=== PATIENT | female | born 1990 ===

== ENCOUNTER 2020-11-13 19:07 | Inpatient (IN) | payer BC ==
[~2020-11-13] VITALS: Ht 162.6 cm; Wt 81.3 kg
[2020-11-13] MEDS ORDERED: NEWBORN KIT ONE (19:29)
[2020-11-13] MEDS: D5%-LACTATED RINGERS 1,000 ML IV SCH (19:30)
[2020-11-13] MEDS ORDERED: LIDOCAINE 1%, 20ML ONE (19:30)
[2020-11-13] MEDS ORDERED: CALCIUM CARBONATE 500 MG TAB.CHEW PO PRN (19:30)
[2020-11-13] MEDS ORDERED: ONDANSETRON 2MG/ML, 2ML IVPush PRN ×2 (19:30→20:00)
[2020-11-13] MEDS ORDERED: OXYTOCIN 30U/ 0.9% NaCL 500ML 500 ML ONE (19:30)
[2020-11-13] MEDS ORDERED: OXYTOCIN 30U/ 0.9% NaCL 500ML 500 ML IV ONE (19:30)
[2020-11-13] MEDS ORDERED: FENTANYL PF 100 MCG/2ML IVPush PRN (19:30)
[2020-11-13] MEDS ORDERED: OXYTOCIN 30U/ 0.9% NaCL 500ML 500 ML IV PRN (19:30)
[2020-11-13] MEDS ORDERED: TERBUTALINE 1 MG/ML, 1ML SQ PRN (19:30)
[2020-11-13] MEDS ORDERED: MISOPROSTOL 200 MCG TABLET ONE (19:30)
[2020-11-13] MEDS ORDERED: TERBUTALINE 1 MG/ML, 1ML IVPush PRN (19:30)
[2020-11-13] MEDS ORDERED: FENTANYL PF 100 MCG/2ML IV PRN (19:30)
[2020-11-13] MEDS: LACTATED RINGERS 1,000 ML IV SCH ×3 (19:45→23:00)
[2020-11-13] MEDS ORDERED: FENTANYL/BUPIV./NS/PF 250 ML EPIDCONT ONE (19:49)
[2020-11-13] MEDS ORDERED: BUPIVACAINE 0.25% ONE (19:49)
[2020-11-13] MEDS ORDERED: BUPR150T73 PO (19:51)
[2020-11-13] MEDS ORDERED: PREN1TAB10 PO (19:52)
[2020-11-13] MEDS ORDERED: FLUO20TA25 PO (19:52)
[2020-11-13 19:56] VITALS: BP 128/73
[2020-11-13] MEDS ORDERED: LACTATED RINGERS 1,000 ML IVBOLUS PRN (20:00)
[2020-11-13] MEDS ORDERED: PLEASE ENTER HEIGHT AND WEIGHT MC SCH (20:00)
[2020-11-13] MEDS ORDERED: DIPHENHYDRAMINE 50 MG/ML, 1ML IVPush PRN (20:00)
[2020-11-13] MEDS ORDERED: NALOXONE 0.4 MG/ML, 1ML IVPush PRN (20:00)
[2020-11-13] MEDS ORDERED: FENTANYL/BUPIV./NS/PF 250 ML EPIDCONT SCH (20:00)
[2020-11-13] MEDS ORDERED: EPHEDRINE 50 MG/ML, 1ML IVPush PRN (20:00)
[2020-11-13 20:26] LABS: BASOPHILS % (AUTO) 0 % (0-1); EOSINOPHILS % (AUTO) 0 % (1-7); LYMPHOCYTES % (AUTO) 14 % (22-44); MEAN CORPUSCULAR HEMOGLOBIN 31.4 pg (27.0-34.8); MEAN CORPUSCULAR HGB CONC 34.1 g/dL (32.4-35.8); MEAN PLATELET VOLUME 10.2 fL (7.4-10.4); MONOCYTES % (AUTO) 9 % (2-9); NEUTROPHILS % (AUTO) 76 % (42-75); PLATELET COUNT 185 x10^3/uL (130-400); RED CELL DISTRIBUTION WIDTH 14.1 % (9.6-15.2)
[2020-11-13 20:27] LABS: MD NO
[2020-11-14] MEDS ORDERED: MISOPROSTOL 200 MCG TABLET PR PRN (02:30)
[2020-11-14] MEDS ORDERED: OXYcodone/APAP 5/325MG TABLET PO PRN (02:30)
[2020-11-14] MEDS ORDERED: ONDANSETRON 2MG/ML, 2ML IV PRN (02:30)
[2020-11-14] MEDS ORDERED: SIMETHICONE 80 MG CHEW TAB PO PRN (02:30)
[2020-11-14] MEDS: OXYTOCIN 30U/ 0.9% NaCL 500ML 500 ML IV SCH ×2 (03:00→22:22)
[2020-11-14] MEDS: D5%-LACTATED RINGERS 1,000 ML IV SCH (03:30)
[2020-11-14] MEDS: LACTATED RINGERS 1,000 ML IV SCH (03:30)
[2020-11-14] MEDS: IBUPROFEN 600 MG TABLET PO PRN ×3 (03:35→17:20)
[2020-11-14 03:50] VITALS: BP 114/69
[2020-11-14 07:32] VITALS: BP 105/68
[2020-11-14 09:28] LABS: BASOPHILS % (AUTO) 0 % (0-1); EOSINOPHILS % (AUTO) 0 % (1-7); LYMPHOCYTES % (AUTO) 9 % (22-44); MEAN CORPUSCULAR HEMOGLOBIN 31.4 pg (27.0-34.8); MEAN CORPUSCULAR HGB CONC 34.2 g/dL (32.4-35.8); MEAN PLATELET VOLUME 9.8 fL (7.4-10.4); MONOCYTES % (AUTO) 8 % (2-9); NEUTROPHILS % (AUTO) 82 % (42-75); PLATELET COUNT 135 x10^3/uL (130-400); RED CELL DISTRIBUTION WIDTH 14.3 % (9.6-15.2)
[2020-11-14 09:29] LABS: MD NO
[2020-11-14] MEDS: DOCUSATE 100 MG CAPSULE PO PRN ×2 (09:37→21:23)
[2020-11-14] MEDS: PRENATAL VIT/IRON/FA 1 EACH TABLET PO SCH (09:37)
[2020-11-14 11:28] VITALS: BP 119/77
[2020-11-14] MEDS: FLUOXETINE HCL 20 MG CAPSULE PO SCH (12:34)
[2020-11-14] MEDS: BUPROPION SR 150 MG TABLET PO SCH (12:34)
[2020-11-14 15:58] VITALS: BP 100/65
[2020-11-14 21:15] VITALS: BP 114/74
[2020-11-14] MEDS: OXYcodone/APAP 5/325MG TABLET PO PRN (21:23)
[2020-11-15] MEDS: IBUPROFEN 600 MG TABLET PO PRN ×4 (00:11→20:04)
[2020-11-15 00:12] VITALS: BP 102/66
[2020-11-15] MEDS: OXYcodone/APAP 5/325MG TABLET PO PRN ×2 (06:16→07:16)
[2020-11-15 08:00] VITALS: BP 100/65
[2020-11-15] MEDS: PRENATAL VIT/IRON/FA 1 EACH TABLET PO SCH (08:55)
[2020-11-15] MEDS: DOCUSATE 100 MG CAPSULE PO PRN ×2 (08:55→20:04)
[2020-11-15] MEDS: FLUOXETINE HCL 20 MG CAPSULE PO SCH (08:55)
[2020-11-15] MEDS: BUPROPION SR 150 MG TABLET PO SCH (08:56)
[2020-11-15 19:55] VITALS: BP 111/64
[2020-11-16] MEDS: IBUPROFEN 600 MG TABLET PO PRN ×3 (02:04→16:08)
[2020-11-16 08:10] VITALS: BP 105/68
[2020-11-16] MEDS: PRENATAL VIT/IRON/FA 1 EACH TABLET PO SCH (08:41)
[2020-11-16] MEDS: BUPROPION SR 150 MG TABLET PO SCH (08:41)
[2020-11-16] MEDS: FLUOXETINE HCL 20 MG CAPSULE PO SCH (08:41)
[2020-11-16] MEDS: DOCUSATE 100 MG CAPSULE PO PRN (08:41)
[2020-11-16] MEDS ORDERED: IBUP-1222 PO (12:58)
[2020-11-16] MEDS ORDERED: DOCU-131 PO (12:58)
== END 2020-11-16 19:35 | disposition home or self-care (01) | DRG 807 ==
LOC: LDOP 19:07 → LDIP 19:32 → 2NW 11-14 03:30
PROVIDERS: ADMIT Obstetrics & Gynecology; ATTEND Obstetrics & Gynecology
PROC: 10E0XZZ Delivery of Products of Conception, External Approach (ICD-10-PCS; principal; 2020-11-13)
PROC: 0KQM0ZZ Repair Perineum Muscle, Open Approach (ICD-10-PCS; 2020-11-13)
PROC: 3E0S3BZ Introduction of Anesthetic Agent into Epidural Space, Percutaneous Approach (ICD-10-PCS; 2020-11-13)
PROC: 00HU33Z Insertion of Infusion Device into Spinal Canal, Percutaneous Approach (ICD-10-PCS; 2020-11-13)
PROC: 10907ZC Drainage of Amniotic Fluid, Therapeutic from Products of Conception, Via Natural or Artificial Opening (ICD-10-PCS; 2020-11-13)
DX: O99.344 Other mental disorders complicating childbirth (principal); Z37.0 Single live birth; F32.9 Major depressive disorder, single episode, unspecified; Z20.822 Contact with and (suspected) exposure to COVID-19; O70.1 Second degree perineal laceration during delivery; Z3A.38 38 weeks gestation of pregnancy; Z79.899 Other long term (current) drug therapy
CPT/HCPCS: 36415; 85025; 86592; 86850; 86900; 87635; G0378; J2590; J7120